=== PATIENT | female | born 2000 | race African-American/Black ===

== ENCOUNTER 2022-07-21 06:32 | Inpatient (IN) ==
[2022-07-21] MEDS ORDERED: D5 1/2 NS 1,000 mL + PITOCIN 20 UNITS/L IV 20 UNITS/1,000 ML BAG IV ONE ×2 (06:50→09:07)
[2022-07-21] MEDS ORDERED: NS 100 ML IV 100 ML ONE (06:50)
[2022-07-21] MEDS ORDERED: ANCEF VIAL 1 GRAM ONE (06:50)
[2022-07-21] MEDS ORDERED: LR 1,000 ML IV 1,000 ML IV ONE (06:50)
[2022-07-21] MEDS ORDERED: ANCEF VIAL 1 GRAM IVP ONE (07:15)
[2022-07-21] MEDS ORDERED: VERSED ONE (07:23)
[2022-07-21] MEDS ORDERED: DILAUDID INJ ONE (07:23)
[2022-07-21] MEDS ORDERED: XYLOCAINE 2 % (PLAIN) ONE (07:23)
[2022-07-21] MEDS ORDERED: PITOCIN ONE (07:23)
[2022-07-21] MEDS ORDERED: MARCAINE SPINAL ONE (07:23)
[2022-07-21] MEDS ORDERED: EPHEDRINE SULFATE INJ ONE (07:48)
[2022-07-21] MEDS ORDERED: D5 1/2 NS 1,000 ML 1,000 ML IV SCH (08:00)
[2022-07-21] MEDS ORDERED: REGLAN INJ 10 MG VIAL IVP PRN ×2 (09:06→09:47)
[2022-07-21] MEDS ORDERED: BENADRYL INJ 50 MG VIAL IVP PRN ×2 (09:06→09:47)
[2022-07-21] MEDS ORDERED: ZOFRAN INJ 4 MG VIAL IVP PRN ×2 (09:06→09:47)
[2022-07-21] MEDS ORDERED: BARHEMSYS INJ IVP PRN (09:06)
[2022-07-21] MEDS ORDERED: NARCAN INJ IVP PRN (09:47)
[2022-07-21] MEDS ORDERED: ADACEL or BOOSTRIX TDaP VACCINE IM ONE (09:47)
[2022-07-21] MEDS ORDERED: TORADOL 30 MG VIAL IVP PRN (09:47)
[2022-07-21] MEDS ORDERED: MYLICON TAB 80 MG CHEW PO PRN (09:47)
[2022-07-21] MEDS ORDERED: PERCOCET TAB 5/325 MG PO PRN (09:47)
[2022-07-21] MEDS ORDERED: D5 1/2 NS 1,000 ML 1,000 ML with PITOCIN 20 UNITS IV SCH ×2 (10:00)
[2022-07-22 04:56] LABS: HEMATOCRIT 34.2 % (36.0-47.0); HEMOGLOBIN 11.4 g/dL (12.0-16.0)
[2022-07-22] MEDS ORDERED: PERCOCET TAB 5/325 MG PO PRN (08:38)
[2022-07-22] MEDS: PROTONIX TAB 40 MG PO SCH (09:00)
[2022-07-22] MEDS: VALTREX PO SCH (09:00)
[2022-07-22] MEDS: PRENATAL PLUS PO SCH (09:00)
[2022-07-22] MEDS: COLACE CAP 100 MG PO SCH ×2 (10:22→20:24)
[2022-07-22] MEDS: MOTRIN TAB 800 MG PO PRN ×2 (10:25→20:26)
[2022-07-22] MEDS ORDERED: ADACEL or BOOSTRIX TDaP VACCINE IM ONE (10:25)
[2022-07-22] MEDS: BACTROBAN TOPICAL OINT TOP SCH ×2 (14:25→21:59)
[2022-07-23] MEDS: BACTROBAN TOPICAL OINT TOP SCH (05:19)
[2022-07-23] MEDS: MOTRIN TAB 800 MG PO PRN (07:00)
[2022-07-23] MEDS ORDERED: DEPO-PROVERA CONTRACEPTIVE INJ IM ONE ×2 (08:55→09:02)
[2022-07-23] MEDS: PROTONIX TAB 40 MG PO SCH (09:05)
[2022-07-23] MEDS: VALTREX PO SCH (09:05)
[2022-07-23] MEDS: PRENATAL PLUS PO SCH (09:05)
[2022-07-23 09:32] VITALS: BP 137/72
== END 2022-07-23 11:05 | disposition home or self-care (01) | DRG 787 ==
LOC: LD 06:32 → MED/SURG 09:17
PROVIDERS: ADMIT Specialist; ATTEND Specialist